=== PATIENT | male | born 1965 | race Caucasian/White ===

== ENCOUNTER 2018-04-20 02:19 | Inpatient (IN) | payer MEDICAID ==
[~2018-04-20] VITALS: Ht 190.5 cm; Wt 115.5 kg
[2018-04-20] VITALS (7 sets, daily range): BP systolic 118–180; BP diastolic 78–108
--- NOTE | ~2018-04-20 | EC ---
PATIENT:OWEN ARRIOLA DATE OF SERVICE: 04/20/18 SEX: M MEDICAL RECORD: [id number] DATE OF : 69 LOCATION:D.MS [address] AGE OF PATIENT: 52 ADMISSION DATE: 04/20/18 REFERRING PHYSICIAN: INTERPRETING PHYSICIAN: ADELE GUERRERO MD ECHOCARDIOGRAM REPORT ECHO CHARGES Date: CLINICAL DIAGNOSIS: ECHOCARDIOGRAPHIC MEASUREMENTS (adult normal given) AC root (d.<3.7cm) cm LV Septum d (<1.2 cm> cm Valve Excursion cm LV Septum (systole) cm Left Atria (s.<4.0cm> cm LVPW d(<1.2cm) cm RV (d.<2.3cm) cm LVPW (sytole) cm LV diastole(<5.6CM) cm MV E-F(>70mm/sec) cm LV systole cm LVOT Diameter cm MV exc.(>10mm) cm Est.ejection fraction (50-75%) % DOPPLER: LVIT cm/sec A cm/sec E cm/sec LA cm/sec RVSP mmHg LVOT cm/sec AOP1/2T m/s Asc. Ao cm/sec RVOT cm/sec RA cm/sec PA cm/sec AV Gradient Peak mmHg AV Mean mmHg AV Area cm MV Gradient Peak mmHg MV Mean mmHg MV Area cm COMMENTS: Flasher Adjuster: Head Still Operator: IVANIA# Pericardial Effusion DATE OF SERVICE: 04/20/2018 FINDINGS: 1. Left ventricular chamber size is mildly dilated. Left ventricular systolic function is preserved. Overall ejection fraction estimated at 55%. 2. Left atrium is within normal limits at 3.8 cm. Right atrium and right ventricular chamber sizes are mildly dilated. 3. Valvular structures have normal structure and motion. 4. Doppler interrogation reveals trace aortic insufficiency, trace mitral regurgitation, mild tricuspid regurgitation. No other valvular insufficiency or ECHOCARDIOGRAM REPORT [id number] OWEN ARRIOLA stenosis. Pulmonary systolic pressure is estimated at 31 mmHg. 5. No evidence of pericardial effusion or left ventricular thrombus. TRANSINT:[id number] Voice Confirmation ID: [id number] DOCUMENT ID: [id number] ADELE GUERRERO MD at 1749 CC: [id number] DICTATION DATE: 04/20/18 0294 RUBBING BED OPERATOR: 04/20/18 1705 ADM IN [facility] [address] [place] [address]
[2018-04-20 13:10] LABS: T4 THYROXIN - FREE 1.17 ng/dL (0.76-1.46); THYROID STIMULATING HORMONE 1.43 uIU/mL (0.36-3.74)
[2018-04-21] VITALS (9 sets, daily range): BP systolic 97–191; BP diastolic 57–108; Ht 190.5 cm; Wt 115.5 kg
[2018-04-21 06:24] LABS: BASOPHILS 0.2 % (0-2); EOSINOPHILS 1.1 % (0-7); HEMATOCRIT 26.8 % (42.0-54.0); HEMOGLOBIN 8.7 g/dL (13.5-17.5); IMMATURE GRANULOCYTES 0.2 % (0-5); LYMPHOCYTES 25.4 % (15-50); MCH 27.4 pg (26.0-34.0); MCHC 32.5 g/dL (31.0-37.0); MCV 84.3 fL (80.0-100.0); MEAN PLATELET VOLUME 9.4 fL (7.4-10.4); MONOCYTES 6.5 % (2-11); NEUTROPHILS 66.6 % (40-80); PLATELET COUNT 257 10x3/uL (130-400); RBC 3.18 10x6/uL (4.20-6.10); RDW 11.9 % (11.5-14.5); WBC 8.4 10x3/uL (4.8-10.8)
[2018-04-21 06:51] LABS: CALCIUM 8.1 mg/dL (8.5-10.1); CARBON DIOXIDE 25.5 mmol/L (21.0-32.0); CREATININE - SERUM 1.7 mg/dL (0.6-1.3); POTASSIUM - SERUM 4.5 mmol/L (3.5-5.1)
[2018-04-21 10:46] LABS: CREATININE - URINE 53.3 mg/dL (30-125); PROTEIN - URINE 130.7 mg/dL (0.0-11.9)
[2018-04-22 00:10] VITALS: BP 154/84
[2018-04-22 04:03] VITALS: BP 183/96
[2018-04-22 04:44] LABS: BASOPHILS 0.1 % (0-2); EOSINOPHILS 0.8 % (0-7); HEMATOCRIT 26.8 % (42.0-54.0); HEMOGLOBIN 8.6 g/dL (13.5-17.5); IMMATURE GRANULOCYTES 0.6 % (0-5); MCH 27.1 pg (26.0-34.0); MCHC 32.1 g/dL (31.0-37.0); MCV 84.5 fL (80.0-100.0); MONOCYTES 5.7 % (2-11); NEUTROPHILS 68.8 % (40-80); PLATELET COUNT 252 10x3/uL (130-400); RBC 3.17 10x6/uL (4.20-6.10)
[2018-04-22 04:57] LABS: ANION GAP 11.7 mmol/L (8-16); CALCIUM 8.5 mg/dL (8.5-10.1); CARBON DIOXIDE 25.5 mmol/L (21.0-32.0); CREATININE - SERUM 1.7 mg/dL (0.6-1.3); POTASSIUM - SERUM 4.2 mmol/L (3.5-5.1)
[2018-04-22 08:10] VITALS: BP 186/113
[2018-04-22 12:47] VITALS: BP 188/108
[2018-04-22 16:48] VITALS: BP 153/87
[2018-04-22 20:00] VITALS: BP 157/98
[2018-04-23] VITALS: BP 148/78
[2018-04-23 04:00] VITALS: BP 170/101
[2018-04-23 06:50] LABS: BASOPHILS 0.2 % (0-2); EOSINOPHILS 1.1 % (0-7); HEMATOCRIT 25.1 % (42.0-54.0); HEMOGLOBIN 8.1 g/dL (13.5-17.5); IMMATURE GRANULOCYTES 0.4 % (0-5); LYMPHOCYTES 22.8 % (15-50); MCH 27.5 pg (26.0-34.0); MCHC 32.3 g/dL (31.0-37.0); MCV 85.1 fL (80.0-100.0); MONOCYTES 7.1 % (2-11); NEUTROPHILS 68.4 % (40-80); PLATELET COUNT 267 10x3/uL (130-400); RBC 2.95 10x6/uL (4.20-6.10); RDW 12.1 % (11.5-14.5); WBC 9.1 10x3/uL (4.8-10.8)
[2018-04-23 07:04] LABS: ANION GAP 12.2 mmol/L (8-16); CALCIUM 8.5 mg/dL (8.5-10.1); CARBON DIOXIDE 25.5 mmol/L (21.0-32.0); CREATININE - SERUM 1.8 mg/dL (0.6-1.3); POTASSIUM - SERUM 3.7 mmol/L (3.5-5.1)
[2018-04-23 09:22] VITALS: BP 168/96
[2018-04-23 15:58] VITALS: BP 146/73
[2018-04-23 20:00] VITALS: BP 157/95
[2018-04-24] VITALS: BP 171/107
[2018-04-24 04:00] VITALS: BP 141/84
[2018-04-24 05:17] LABS: BASOPHILS 0.2 % (0-2); EOSINOPHILS 1.2 % (0-7); HEMATOCRIT 26.7 % (42.0-54.0); HEMOGLOBIN 8.5 g/dL (13.5-17.5); IMMATURE GRANULOCYTES 0.2 % (0-5); LYMPHOCYTES 22.8 % (15-50); MCH 27.2 pg (26.0-34.0); MCHC 31.8 g/dL (31.0-37.0); MCV 85.3 fL (80.0-100.0); MEAN PLATELET VOLUME 8.9 fL (7.4-10.4); MONOCYTES 7.3 % (2-11); NEUTROPHILS 68.3 % (40-80); PLATELET COUNT 297 10x3/uL (130-400); RBC 3.13 10x6/uL (4.20-6.10); RDW 12.1 % (11.5-14.5); WBC 8.6 10x3/uL (4.8-10.8)
[2018-04-24 05:23] LABS: ANION GAP 11.9 mmol/L (8-16); CALCIUM 8.3 mg/dL (8.5-10.1); CREATININE - SERUM 1.9 mg/dL (0.6-1.3); POTASSIUM - SERUM 3.9 mmol/L (3.5-5.1)
[2018-04-24 08:58] VITALS: BP 180/101
[2018-04-24 16:06] VITALS: BP 132/68
[2018-04-24 20:00] VITALS: BP 174/106
[2018-04-25] VITALS: BP 147/80
[2018-04-25 04:00] VITALS: BP 148/78
[2018-04-25 06:30] LABS: BASOPHILS 0.3 % (0-2); EOSINOPHILS 1.4 % (0-7); HEMOGLOBIN 8.6 g/dL (13.5-17.5); IMMATURE GRANULOCYTES 0.4 % (0-5); MCH 27.2 pg (26.0-34.0); MCHC 31.9 g/dL (31.0-37.0); MCV 85.4 fL (80.0-100.0); MEAN PLATELET VOLUME 8.6 fL (7.4-10.4); MONOCYTES 8.5 % (2-11); NEUTROPHILS 66.4 % (40-80); PLATELET COUNT 292 10x3/uL (130-400); RBC 3.16 10x6/uL (4.20-6.10); RDW 12.2 % (11.5-14.5); WBC 7.4 10x3/uL (4.8-10.8)
[2018-04-25 06:54] LABS: ANION GAP 10.3 mmol/L (8-16); CALCIUM 8.7 mg/dL (8.5-10.1); CARBON DIOXIDE 26.4 mmol/L (21.0-32.0); CREATININE - SERUM 1.7 mg/dL (0.6-1.3); POTASSIUM - SERUM 3.7 mmol/L (3.5-5.1)
[2018-04-25 08:31] VITALS: BP 191/107
[2018-04-25 12:45] VITALS: BP 185/105
[2018-04-25 17:56] VITALS: BP 113/75
[2018-04-25 22:54] VITALS: BP 169/95
[2018-04-26 01:26] VITALS: BP 120/80
[2018-04-26 09:20] VITALS: BP 198/109
[2018-04-26 12:03] VITALS: BP 195/119
[2018-04-26 13:48] VITALS: BP 182/108
[2018-04-26 15:39] VITALS: BP 174/102
[2018-04-26 20:51] VITALS: BP 176/99
[2018-04-27 05:28] VITALS: BP 192/106
[2018-04-27 09:32] VITALS: BP 197/106
[2018-04-27] MEDS ORDERED: COREG12.5 MG PO (11:11)
[2018-04-27] MEDS ORDERED: NORVASC10 MG PO (11:11)
[2018-04-27] MEDS ORDERED: LISINOPRIL10 MG PO (11:11)
[2018-04-27] MEDS ORDERED: CATAPRES0.1 MG PO (11:11)
[2018-04-27] MEDS ORDERED: HYDRALAZINE HCL50 MG PO (11:11)
[2018-04-27] MEDS ORDERED: FLORAJEN3 CAPS460 MG PO (11:11)
[2018-04-27] MEDS ORDERED: LANTUS INSULIN10 ML SC (11:12)
[2018-04-27] MEDS ORDERED: CIPRO500 MG PO (11:13)
[2018-04-27] MEDS ORDERED: ZYVOX600 MG PO (11:13)
[2018-04-27] MEDS ORDERED: HUMULIN R100 U/ML SC (11:13)
[2018-04-27 12:11] VITALS: BP 163/98
== END 2018-04-27 15:17 | disposition home health service (06) | DRG 617 ==
LOC: D.ER 02:19 → D.EDHOLD 04:11 → D.MS 04:11
PROVIDERS: Internal Medicine Nephrology; Podiatrist Foot & Ankle Surgery
PROC: 0Y6P0Z3 Detachment at Right 1st Toe, Low, Open Approach (ICD-10-PCS; principal; 2018-04-23 07:30)
PROC: 0Y6M0Z9 Detachment at Right Foot, Partial 1st Ray, Open Approach (ICD-10-PCS; 2018-04-27)
PROC: 0HBMXZZ Excision of Right Foot Skin, External Approach (ICD-10-PCS; 2018-04-27)
PROC: 0HQMXZZ Repair Right Foot Skin, External Approach (ICD-10-PCS; 2018-04-27)
DX: E11.628 Type 2 diabetes mellitus with other skin complications (principal); I96 Gangrene, not elsewhere classified; E11.52 Type 2 diabetes mellitus with diabetic peripheral angiopathy with gangrene; I12.9 Hypertensive chronic kidney disease with stage 1 through stage 4 chronic kidney disease, or unspecified chronic kidney disease; L03.031 Cellulitis of right toe; E11.65 Type 2 diabetes mellitus with hyperglycemia; E11.22 Type 2 diabetes mellitus with diabetic chronic kidney disease; E11.621 Type 2 diabetes mellitus with foot ulcer; N18.3 Chronic kidney disease, stage 3 (moderate); Z91.19 Patient's noncompliance with other medical treatment and regimen; I10 Essential (primary) hypertension

== ENCOUNTER 2018-05-04 13:08 | Emergency (ER) | payer MEDICAID ==
[~2018-05-04] VITALS: Ht 190.5 cm; Wt 106.4 kg
[~2018-05-04 13:08] MED LIST: CATAPRES0.1 MG PO; CIPRO500 MG PO; COREG12.5 MG PO; FLORAJEN3 CAPS460 MG PO; HUMULIN R100 U/ML SC; HYDRALAZINE HCL50 MG PO; LANTUS INSULIN10 ML SC; LISINOPRIL10 MG PO; NORVASC10 MG PO; ZYVOX600 MG PO
[2018-05-04 13:41] VITALS: Ht 190.5 cm; Wt 106.4 kg
[2018-05-04 14:55] LABS: BASOPHILS 0.3 % (0-2); EOSINOPHILS 0.5 % (0-7); HEMATOCRIT 32.5 % (42.0-54.0); HEMOGLOBIN 10.6 g/dL (13.5-17.5); IMMATURE GRANULOCYTES 0.3 % (0-5); LYMPHOCYTES 17.8 % (15-50); MCH 27.5 pg (26.0-34.0); MCHC 32.6 g/dL (31.0-37.0); MCV 84.2 fL (80.0-100.0); MEAN PLATELET VOLUME 8.3 fL (7.4-10.4); MONOCYTES 6.2 % (2-11); NEUTROPHILS 74.9 % (40-80); RBC 3.86 10x6/uL (4.20-6.10); RDW 12.7 % (11.5-14.5)
[2018-05-04 14:56] LABS: PLATELET COUNT 392 10x3/uL (130-400)
[2018-05-04 15:25] LABS: ALBUMIN 2.5 g/dL (3.4-5.0); ANION GAP 9.6 mmol/L (8-16); BILIRUBIN - TOTAL 0.29 mg/dL (0.2-1.3); CALCIUM 8.5 mg/dL (8.5-10.1); CARBON DIOXIDE 27.3 mmol/L (21.0-32.0); CREATININE - SERUM 2.9 mg/dL (0.6-1.3); POTASSIUM - SERUM 3.9 mmol/L (3.5-5.1); PROTEIN - SERUM 6.7 g/dL (6.4-8.2)
[2018-05-04] MEDS ORDERED: ZOFRAN8 MG PO (20:33)
[2018-05-04 21:12] VITALS: BP 165/100
== END 2018-05-04 21:27 | disposition home or self-care (01) ==
LOC: D.ER 13:08
PROVIDERS: Family Medicine
DX: K52.9 Noninfective gastroenteritis and colitis, unspecified (principal); E11.9 Type 2 diabetes mellitus without complications; R11.2 Nausea with vomiting, unspecified; K59.00 Constipation, unspecified

== ENCOUNTER 2018-07-31 06:54 | Outpatient (CLI) | payer MEDICAID ==
[~2018-07-31] VITALS: Ht 190.5 cm; Wt 106.8 kg
--- NOTE | ~2018-07-31 | HP ---
PATIENT: OWEN ARRIOLA MEDICAL RECORD: [id number] ACCOUNT: [id number] LOCATION:VIDYA : 69 ADMISSION DATE: 07/31/18 PCP: IVANA NICHOLS MD HISTORY AND PHYSICAL EXAMINATION DATE OF SERVICE: 07/31/2018 DIAGNOSES: 1. Chest pain compatible with angina. 2. Shortness of breath. 3. Hypertension. 4. Abnormal nuclear stress test. HISTORY OF PRESENT ILLNESS: Mr. Arriola has past history of hypertension, but no history of ischemic heart disease. He has been having chest pain and shortness of breath. He underwent risk stratification with stress testing and Cardiolite imaging, now brought for cardiac catheterization as this was abnormal. PHYSICAL EXAMINATION: GENERAL APPEARANCE: Well-nourished, well-developed, appears stated age. Level of distress, comfortable. PSYCHIATRIC: Mental status, alert, normal affect. Orientation, oriented to time, place and person. EYES: Lids and conjunctiva, noninjected. No discharge, no pallor. ENT: Lips, teeth, gums, normal dentition. Oropharynx, no cyanosis, no pallor. NECK: Carotid arteries, bilateral normal upstroke, no bruits, no thrills. JUGULAR VEINS: No jugular venous pressure or distention. CERVICAL LYMPH NODES: Nontender, nonenlarged. THYROID: Not enlarged. Nontender. No nodules. LUNGS: Respiratory effort, unlabored. CHEST: Normal curvature. No thoracic deformity. No chest wall tenderness. Percussion, resonant. Auscultation, clear. No wheezes, no rales, no rhonchi. CARDIOVASCULAR: Precordial exam, nondisplaced. No heaves or pericardial thrills. Rate and rhythm, regular. Heart sounds, normal S1, normal S2. No S3, no gallop, no rub. Systolic murmur, not heard. Diastolic murmur, not heard. EXTREMITIES: No cyanosis, no edema. Peripheral pulses, full and equal in all extremities, except as noted. No bruits appreciated. ABDOMEN: Soft, nondistended. Normal aorta. No bruit. Nontender. No masses. Liver, nontender, no hepatomegaly. Spleen, nontender, no splenomegaly. MUSCULOSKELETAL: No joint tenderness. No joint swelling. No erythema. NEUROLOGICAL: Normal gait, normal strength, normal tone. SKIN: Warm and dry. OVERALL IMPRESSION: Chest pain, shortness of breath, abnormal nuclear stress test. We will proceed with coronary angiography. Further care depends on the findings of the angiography. TRANSINT:[id number] Voice Confirmation ID: [id number] DOCUMENT ID: [id number] HISTORY AND PHYSICAL [id number] OWEN ARRIOLA JEFFREY MD at 0924 CC: [id number] DICTATION DATE: 07/31/18 1428 SEAT COVER CUTTER: 07/31/18 1436 DEP CLI 07/31/18 [id number] [place] [address]
--- NOTE | ~2018-07-31 | OP ---
PATIENT NAME: OWEN ARRIOLA MEDICAL RECORD: [id number] :69 LOCATION:D.CAT ADMISSION DATE: SURGEON: ADELE GUERRERO MD DATE OF OPERATION: 07/31/2018 PROCEDURES: 1. Left heart catheterization. 2. Selective coronary angiography. 3. Left ventriculogram. INDICATION: Chest pain compatible with angina and abnormal nuclear stress test. PROCEDURE IN DETAIL: After informed consent was obtained and after a detailed description of the risks, benefits as well as alternative therapies, the patient elected to proceed with angiogram and heart catheterization. The right radial area was prepped and draped in normal sterile fashion. Right radial artery was cannulated via modified Seldinger technique with placement of 5-Tunisian sheath. All catheters exchanged through this sheath. FINDINGS: Left ventriculogram was performed in standard 30-degree NASH view, reveals good cardiac wall motion throughout all segments. Overall ejection fraction estimated at 60%. SELECTIVE CORONARY ANGIOGRAPHY: Left main, left anterior descending, left circumflex, right coronary artery are smooth-walled vessels with no angiographic evidence of coronary artery disease. OVERALL IMPRESSION: 1. No angiographic evidence of coronary artery disease. 2. Normal left heart pressures. 3. Normal left ventricular systolic function. Chest pain is not cardiac in etiology. No further cardiac workup needs to be ascertained. TRANSINT:[id number] Voice Confirmation ID: [id number] DOCUMENT ID: [id number] ADELE GUERRERO MD at 0924 CC: [id number] DICTATION DATE: 07/31/18 1427 VICE PRESIDENT PAYER: 07/31/18 1439 DEP CLI 07/31/18 [place] [address]
--- NOTE | ~2018-07-31 | HEMODYNAMI ---
PATIENT:OWEN ARRIOLA MEDICAL RECORD: [id number] : 69 LOCATION:VIDYA ADMISSION DATE: 07/31/18 Generatedon:07/31/201814:29 Patient name: OWEN ARRIOLA Patient #: [id number] SSN: : 1965 Date of study: 07/31/2018 Page: Of Hemodynamic Procedure Report Patient Data Patient Demographics Procedure consent was obtained First Name: OWEN Gender: Male Last Name: FLAKO : 1965 Patient #: [id number] Age: 52 year(s) Race: Unknown Additional ID: [id number] Contact details [address]: [address] [place] [address] State: [place] City: [place] Zip code: [address] Admission Admission Data Admission Date: 07/31/2018 Admission Time: 6:54 Procedure Procedure Types Cath Procedure Diagnostic Procedure LHC LHC w/Coronaries Procedure Description Procedure Date Procedure Date: 07/31/2018 Procedure Start Time: 14:17 Procedure End Time: 14:25 Procedure Staff Name Function Yony Moore MD Performing Physician Mana Rehman RT Monitor Jerome Moser RN Nurse Paola Ruelas RT Scrub Procedure Data Cath Procedure Fluoroscopy Diagnostic fluoroscopy Total fluoroscopy Time: 1.5 time: 1.5 min min Diagnostic fluoroscopy Total fluoroscopy dose: 488 dose: 488 mGy mGy Contrast Material Contrast Material Type Amount (ml) Isovue 300 47 Entry Location Entry Primary Successful Side Size Upsize Upsize Entry Closure Jeter ccessful Closure Location (Fr) 1 (Fr) 2 (Fr) Remarks Device Remarks Radial Right 6 Fr Mechanical artery Short Compression Estimated blood loss: 5 ml Diagnostic catheters Device Type Used For End Catheter Placement DIAGNOSTIC [place] 110cm 5 Multi-vessel Fr catheter ([id number]) Angiography Procedure Complications No complications Procedure Medications Medication Administration Route Dosage Oxygen etCO2 Nasal cannula 2 l/min Heparin Flush Bag added to field 2 bags (1000units/500ml NS) 0.9% NaCl I.V. 100 ml/hr Radial Cocktail added to field 1 syringe (Verapomil 2mg/Nitro 400mcg/Heparin 1500units) Fentanyl I.V. 50 mcg Versed I.V. 1 mg Radial Cocktail I.A. 1 syringe (Verapomil 2mg/Nitro 400mcg/Heparin 1500units) Fentanyl I.V. 50 mcg Versed I.V. 1 mg Hemodynamics Rest Heart Rate: 77 (bpm) Pressure Samples Time Site Value (mmHg) Purpose Heart Use Rate(bpm) 14:19 AO 134/61(94) Snapshot 49 Snapshots Pre Cath Intra NCS Post Cath Vital Signs Time Heart Resp SPO2 etCO2 NIBP (mmHg) Rhythm Pain Sedation Rate (ipm) (%) (mmHg) Status Level (bpm) 13:54:22 80 17 0 168/96(140) NSR 0 (11) 10(A) , No pain 13:58:42 73 17 0 165/92(135) NSR 0 (11) 10(A) , No pain 14:03:00 69 17 0 164/96(134) NSR 0 (11) 10(A) , No pain 14:07:21 76 17 100 32.2 161/88(141) NSR 0 (11) 10(A) , No pain 14:11:39 69 17 99 28.5 150/91(121) NSR 0 (11) 10(A) , No pain 14:15:54 74 16 99 36 150/88(113) NSR 0 (11) 9(A) , No pain 14:20:10 75 17 98 32.2 114/81(104) NSR 0 (11) 9(A) , No pain 14:24:14 73 17 97 32.2 123/84(103) NSR 0 (11) 9(A) , No pain Medications Time Medication Route Dose Verified Delivered Reason Notes Effectiveness by by 14:03:12 Oxygen etCO2 2 l/min Yony Cano Per Nasal Oscar Moser RN physician cannula 14:05:31 Heparin Flush added 2 bags Yony Cano used for Bag to Oscar Moser hydrologist (1000units/500ml field NS) 14:05:38 0.9% NaCl I.V. 100 Yony Cano Per ml/hr Oscar Moser RN physician 14:05:45 Radial Cocktail added 1 Yony Cano used for (Verapomil to syringe Oscar Moser RN procedure 2mg/Nitro field 400mcg/Heparin 1500units) 14:12:57 Fentanyl I.V. 50 mcg Yony Cano for sedation Oscar Moser RN 14:13:04 Versed I.V. 1 mg Yony Cano for sedation Oscar Moser RN 14:19:58 Radial Cocktail I.A. 1 Yony Bhakta for (Verapomil syringe Oscar Moore MD vasodilation 2mg/Nitro 400mcg/Heparin 1500units) 14:20:05 Fentanyl I.V. 50 mcg Yony Cano for sedation Oscar Moser RN 14:20:09 Versed I.V. 1 mg Yony Cano for sedation Oscar Moser RN Procedure Log Time Note 13:30:38 Jerome Moser RN sent for patient. Start room use. 13:35:39 Time tracking: Regular hours (M-F 7:00 - 5:00) 13:35:44 Plan of Care:Hemodynamics will remain stable., Cardiac rhythm will remain stable., Comfort level will be maintained., Respiratory function will remain adequate., Patient/ family verbilizes understanding of procedure., Procedure tolerated without complication., Recovers from procedure without complications.. 13:41:54 Patient received from Pre/Post Procedure Room to CCL 2 Alert and oriented. Tansferred to table in Supine position. 13:41:56 Warm blankets applied, and juana hugger turned on for patient comfort. 13:41:57 Correct patient and procedure confirmed by team. 13:41:59 Signed procedure consent form obtained from patient. 13:45:02 ECG and BP/O2 sat monitors applied to patient. 13:53:13 Vital chart was started 13:53:15 Baseline sample Acquired. 13:53:26 Rhythm: sinus rhythm 13:53:28 Full Disclosure recording started 13:53:34 H&P Date Dictated: 07/31/2018 Within 30 days and on chart., H&P Addendum completed by physician on day of procedure. (MUST COMPLETE FOR ALL OUTPATIENTS). 13:53:35 Pre-procedure instructions explained to patient. 13:53:36 Pre-op teaching completed and patient verbalized understanding. 13:53:37 Family in waiting room. 13:53:39 Patient NPO since Midnight. 13:53:40 Is the patient allergic to Iodine/contrast media? No. 13:53:41 Was the patient premedicated? No 13:54:39 Is patient on blood thinner?No 13:54:41 Patient diabetic? No. 13:54:45 Previous problem with sedation/anesthesia? No ? 13:54:47 Snore? Yes 13:54:48 Sleep apnea? No 13:54:48 Deviated septum? No 13:54:49 Opens mouth fully? Yes 13:54:50 Sticks out tongue? Yes 13:54:51 Airway obstruction? No ? 13:54:54 Dentures? No ? 13:54:57 Pre procedure: right dorsailis pedis pulse 2+ Normal; easily identifiable; not easily obliterated 13:55:00 Pre procedure: left dorsailis pedis pulse 2+ Normal; easily identifiable; not easily obliterated 13:55:03 Patient pain scale 0/10 ?. 14:03:12 Oxygen 2 l/min etCO2 Nasal cannula was administered by Jerome Moser RN; Per physician; 14:05:31 Heparin Flush Bag (1000units/500ml NS) 2 bags added to field was administered by Jerome Moser RN; used for procedure; 14:05:38 0.9% NaCl 100 ml/hr I.V. was administered by Jerome Moser RN; Per physician; 14:05:44 IV started by Jerome Moser RN inright hand with a 20 gauge IV catheter with 0.9% NaCl at KVO. 14:05:45 Radial Cocktail (Verapomil 2mg/Nitro 400mcg/Heparin 1500units) 1 syringe added to field was administered by Jerome Moser RN; used for procedure; 14:05:47 Lab results completed and on chart. 14:05:51 Right Radial & Right Groin area was prepped with chlora-prep and draped in sterile fashion 14:05:52 Alarms reviewed by Jasmin Rowan. 14::53 Sharps counted by scrub and verified by Autumn. 14:09:52 Physician arrived 14::53 --------ALL STOP TIME OUT------ 14::53 Final Timeout: patient, procedure, and site verified with staff and physician. All members of the team are in agreement. 14:09:55 Right Radial & Right Groin site verified by team. 14:09:58 Physical assessment completed. ASA score P 2 - A patient with mild systemic disease as per Yony Moore MD. 14:10:01 Sedation plan: IV Moderate Sedation Medication:Versed, Fentanyl 14:10:06 Use device set Radial Dx or PCI 14:10:07 ACIST Syringe (24216) opened to sterile field. 14:10:07 Medline Cath Pack ([id number]) opened to sterile field. 14:10:07 Bag Decanter (2002S) opened to sterile field. 14:10:08 DIAGNOSTIC WIRE .035 260cm J wire (629054) opened to sterile field. 14:10:08 ACIST Hand Control (44662) opened to sterile field. 14:10:09 ACIST Manifold (49702) opened to sterile field. 14:10:09 Tegaderm 4 x 4 (1626W) opened to sterile field. 14:10:10 MBrace Wrist Support ([id number]) opened to sterile field. 14:10:11 SHEATH 6Fr Prelude Radial ([id number]) opened to sterile field. 14:10:21 IV CATHETER 20g opened to sterile field. 14:10:22 IV CATHETER 20g opened to sterile field. 14:12:18 Zero performed for pressure channel P1 14:12:57 Fentanyl 50 mcg I.V. was administered by Jerome Moser RN; for sedation; 14:13:04 Versed 1 mg I.V. was administered by Jerome Moser RN; for sedation; 14:17:07 Procedure started. 14:17:14 Local anesthetic to right radial artery with Lidocaine 2% by Yony Moore MD.INITIAL ACCESS ONLY 14:17:31 A 6 Fr Short sheath was inserted into the Right Radial artery 14:18:15 A DIAGNOSTIC [place] 110cm 5 Fr catheter ([id number]) was advanced over the wire and used for Multi-vessel Angiography. 14:19:55 LV hemodynamics recorded. 14:19:58 Radial Cocktail (Verapomil 2mg/Nitro 400mcg/Heparin 1500units) 1 syringe I.A. was administered by Yony Moore MD; for vasodilation; 14:20:05 Fentanyl 50 mcg I.V. was administered by Jerome Moser RN; for sedation; 14:20:06 EF : 60 % 14:20:07 LV gram done using NASH 14:20:09 Versed 1 mg I.V. was administered by Jerome Moser RN; for sedation; 14:20:10 Injector settings: Ml/sec: 5, Volume: 15\, 14:20:32 RCA angiography performed. 14:20:35 Injector settings: Ml/sec: 3, Volume: 6, 14:20:43 Catheter removed. 14:21:17 GUIDE 6FR XBLAD 3.5 catheter ([id number]) opened to sterile field. 14:21:48 6 Fr xblad 3.5 guide catheter was inserted over the wire 14:22:25 LCA angiography performed. 14:22:27 Injector settings: Ml/sec: 3, Volume: 6, 14:23:23 TR BAND Standard ([id number]) opened to sterile field. 14:23:38 Sheath removed intact; hemostasis achieved with Mechanical Compression to the Right Radial artery. 14:23:40 Procedure ended.(Physican Out) 14:24:13 Fluoroscopy time 01.50 minutes. 14:24:18 Fluoroscopy dose: 488 mGy 14:24:18 Flurop Dose total: 488 14:24:29 Contrast amount:Isovue 300 47ml. 14:24:31 Sharps counted by scrub and verified by R.N. 14:24:35 TR band inflated with 10cc of air. 14:24:36 Insertion/operative site no bleeding no hematoma. 14:24:42 Post right radial artery:stable 14:24:43 Post Procedure Pulses reassessed and unchanged 14:24:46 Post procedure rhythm: unchanged. 14:24:58 Estimated blood loss: 5 ml 14:25:01 Post procedure instruction explained to patient.Patient verbalizes understanding. 14:25:01 Patient needs reinforcement of post procedure teaching. 14:25:26 Procedure type changed to Cath procedure, Diagnostic procedure, LHC, LHC w/Coronaries 14:25:26 Procedure and supply charges have been captured, reviewed, submitted and are correct. 14:25:31 Procedure Complication : No complications 14:25:33 Vital chart was stopped 14:25:34 See physician's report for complete and final results. 14:25:38 Report given to [facility] II. 14:25:41 Patient transfered to [facility] with Stretcher. 14:25:43 Procedure ended. 14:25:43 Full Disclosure recording stopped 14:25:49 End room use (Document Last) Device Usage Item Name Manufacture Quantity Catalog Number Hospital Part Current M inimal Lot# / Charge Number Stock Stock Serial# Code ACIST Syringe Acist 1 [id number] [id number] 158837 496853 2 0 (08835) [employer] Inc Medline Cath Cardinal 1 [id number] 17317 879785 5 Pack Health ([id number]) Bag Decanter Microtek 1 2001S 465624 08089 025944 5 (2001S) Medical Inc. DIAGNOSTIC WIRE [address] [place] 1 434408 523060 425672 524118 3 0 .035 260cm J wire (550716) ACIST Hand Acist 1 23376 864238 411351 745214 5 Control (11766) [employer] Systems Inc ACIST Manifold Acist 1 75422 914824 066586 445338 5 (49262) Medical Systems Inc Tegaderm 4 x 4 3M 1 1626W 175288 936596 248144 5 (1626W) MBrace Wrist Advanced 1 140-0250-00 628358 55716 287459 5 Support Vascular ([id number]) Dynamics SHEATH 6Fr Merit 1 [id number] 256967 277027 942222 5 Prelude Radial Medical ([id number]) IV CATHETER 20g B. Milian 2 [id number] 433190 213618 799857 5 DIAGNOSTIC Terumo 1 40-2117 593856 361504 727365 5 [place] 110cm 5 Fr catheter (266798) GUIDE 6FR XBLAD Cardinal 1 [id number] 663266 919838 276006 1 0 3.5 catheter Health (18622899) TR BAND Terumo 1 [id number] 381938 521872 883121 4 0 Standard ([id number]) Signature Audit [place] Stage Time Signature Unsigned Intra-Procedure 07/31/2018 Mana Rehman 2:29:20 PM RT(R) Signatures Monitor : Mana Rehman RT Signature : Date : Time : [facility] [address] [place] [address]
[~2018-07-31 06:54] MED LIST changes: +ZOFRAN8 MG PO
[2018-07-31] MEDS ORDERED: LISINOPRIL10 MG PO (07:22)
[2018-07-31] MEDS ORDERED: CHLORTHALIDONE25 MG PO (07:23)
[2018-07-31 07:48] VITALS: BP 134/82; Ht 190.5 cm; Wt 106.8 kg
[2018-07-31 07:54] LABS: BASOPHILS 0.1 % (0-2); EOSINOPHILS 1.2 % (0-7); HEMATOCRIT 24.4 % (42.0-54.0); IMMATURE GRANULOCYTES 0.1 % (0-5); LYMPHOCYTES 26.7 % (15-50); MCH 27.6 pg (26.0-34.0); MCHC 32.8 g/dL (31.0-37.0); MCV 84.1 fL (80.0-100.0); MEAN PLATELET VOLUME 8.5 fL (7.4-10.4); MONOCYTES 6.2 % (2-11); NEUTROPHILS 65.7 % (40-80); WBC 6.8 10x3/uL (4.8-10.8)
[2018-07-31 08:03] LABS: PLATELET COUNT 219 10x3/uL (130-400)
[2018-07-31 08:04] LABS: ANION GAP 14.1 mmol/L (8-16); CARBON DIOXIDE 21.4 mmol/L (21.0-32.0); POTASSIUM - SERUM 4.5 mmol/L (3.5-5.1)
== END 2018-07-31 16:40 ==
LOC: D.CATH 06:54
PROVIDERS: Internal Medicine Interventional Cardiology
DX: R07.9 Chest pain, unspecified (principal); R94.39 Abnormal result of other cardiovascular function study; R06.00 Dyspnea, unspecified; I10 Essential (primary) hypertension

== ENCOUNTER → 2020-01-04 19:10 | Outpatient (CLI) | payer BC ==
[2018-07-31 07:48] VITALS: BMI 29.4
[~2020-01-04 19:10] MED LIST changes: +BASAGLAR K100 UNIT/1 SC; +CHLORTHALIDONE25 MG PO; +FUROSEMIDE20 MG PO; +GLUCOSAMINE HC500 MG; +LISINOPRIL20 MG PO; +PEPCID40 MG PO; +PRAVACHOL20 MG PO; +TRADJENTA5 MG PO
== END | disposition home or self-care (01) ==
LOC: D.LABREF 19:10
PROVIDERS: ATTEND Podiatrist Foot & Ankle Surgery
DX: L03.115 Cellulitis of right lower limb (principal)

== ENCOUNTER 2020-01-05 16:15 | Inpatient (IN) | payer BC ==
[~2020-01-05] VITALS: Ht 190.5 cm; Wt 112.9 kg
[~2020-01-05 16:15] MED LIST changes: -BASAGLAR K100 UNIT/1 SC; -FUROSEMIDE20 MG PO; -GLUCOSAMINE HC500 MG; -LISINOPRIL20 MG PO; -PEPCID40 MG PO; -PRAVACHOL20 MG PO; -TRADJENTA5 MG PO
[2020-01-05] MEDS ORDERED: NORVASC10 MG PO (17:08)
[2020-01-05] MEDS ORDERED: COREG12.5 MG PO (17:08)
[2020-01-05] MEDS ORDERED: FUROSEMIDE20 MG PO (17:09)
[2020-01-05] MEDS ORDERED: LISINOPRIL20 MG PO (17:09)
[2020-01-05] MEDS ORDERED: PEPCID40 MG PO (17:09)
[2020-01-05] MEDS ORDERED: TRADJENTA5 MG PO (17:10)
[2020-01-05] MEDS ORDERED: PRAVACHOL20 MG PO (17:10)
[2020-01-05] MEDS ORDERED: GLUCOSAMINE HC500 MG PO (17:11)
[2020-01-05] MEDS ORDERED: BASAGLAR K100 UNIT/1 SC (17:11)
[2020-01-05 17:19] VITALS: BP 190/96; BMI 31.1
[2020-01-05 17:41] LABS: BASOPHILS 0.1 % (0-2); EOSINOPHILS 0.2 % (0-7); HEMATOCRIT 24.5 % (42.0-54.0); HEMOGLOBIN 7.8 g/dL (13.5-17.5); IMMATURE GRANULOCYTES 0.3 % (0-5); LYMPHOCYTES 6.7 % (15-50); MCH 27.9 pg (26.0-34.0); MCHC 31.8 g/dL (31.0-37.0); MCV 87.5 fL (80.0-100.0); MEAN PLATELET VOLUME 8.8 fL (7.4-10.4); MONOCYTES 7.6 % (2-11); NEUTROPHILS 85.1 % (40-80); PLATELET COUNT 258 10x3/uL (130-400); WBC 19.9 10x3/uL (4.8-10.8)
[2020-01-05 18:00] LABS: ALBUMIN 2.7 g/dL (3.4-5.0); ANION GAP 15.3 mmol/L (8-16); BILIRUBIN - TOTAL 0.31 mg/dL (0.2-1.3); CALCIUM 8.7 mg/dL (8.5-10.1); CARBON DIOXIDE 22.6 mmol/L (21.0-32.0); CREATININE - SERUM 3.2 mg/dL (0.6-1.3); POTASSIUM - SERUM 4.9 mmol/L (3.5-5.1); PROTEIN - SERUM 7.4 g/dL (6.4-8.2)
[2020-01-05 20:00] VITALS: BP 163/86
[2020-01-06 04:00] VITALS: BP 159/83
--- NOTE | 2020-01-06 04:22 | NUR ---
I have reviewed this patient and I concur with the Shift Assessment completed by the Licensed Practical Nurse today this shift.
[2020-01-06 04:51] LABS: BASOPHILS 0.1 % (0-2); EOSINOPHILS 0.3 % (0-7); HEMATOCRIT 21.4 % (42.0-54.0); IMMATURE GRANULOCYTES 0.3 % (0-5); LYMPHOCYTES 11.6 % (15-50); MCH 27.2 pg (26.0-34.0); MCHC 31.3 g/dL (31.0-37.0); MEAN PLATELET VOLUME 8.7 fL (7.4-10.4); MONOCYTES 9.4 % (2-11); NEUTROPHILS 78.3 % (40-80); PLATELET COUNT 257 10x3/uL (130-400); RBC 2.46 10x6/uL (4.20-6.10); RDW 13.1 % (11.5-14.5); WBC 15.9 10x3/uL (4.8-10.8)
[2020-01-06 04:59] LABS: APTT 38.7 SECONDS (22.8-39.4); INR 1.07 (0.85-1.17); PROTIME 13.8 SECONDS (11.6-15.0)
[2020-01-06 05:11] LABS: HEMOGLOBIN 6.7 g/dL (13.5-17.5)
[2020-01-06 05:28] LABS: ANION GAP 14.7 mmol/L (8-16); CALCIUM 8.7 mg/dL (8.5-10.1); CARBON DIOXIDE 22.1 mmol/L (21.0-32.0); CREATININE - SERUM 3.4 mg/dL (0.6-1.3); MAGNESIUM - SERUM 1.7 mg/dL (1.8-2.4); PHOSPHOROUS 3.7 mg/dL (2.5-4.9); POTASSIUM - SERUM 4.8 mmol/L (3.5-5.1); VANCOMYCIN - RANDOM 10.8 ug/mL (10.0-20.0)
--- NOTE | 2020-01-06 08:00 | NUR ---
ASSESSMENT PER FLOW SHEET. PT IS WITHOUT DISTRESS.NPO FOR POSSIBLE PROCEDURE TODAY.UNIT 1 OF 2 PRBC'S INFUSING AND PATIENT REMAINS WITHOUT REACTIONS.
[2020-01-06 09:06] VITALS: BP 143/75
[2020-01-06 11:22] VITALS: BP 153/89
--- NOTE | 2020-01-06 11:30 | NUR ---
BACK TO ROOM FROM PACU. VSS. DRESSING RIGHT FOOT CDI. WITHOUT SIGNS OF DISTRESS
[2020-01-06 13:03] VITALS: Ht 190.5 cm; Wt 112.9 kg
[2020-01-06 14:51] LABS: BASOPHILS 0.1 % (0-2); EOSINOPHILS 0.3 % (0-7); HEMATOCRIT 24.6 % (42.0-54.0); HEMOGLOBIN 7.7 g/dL (13.5-17.5); IMMATURE GRANULOCYTES 0.3 % (0-5); LYMPHOCYTES 9.7 % (15-50); MCH 27.3 pg (26.0-34.0); MCHC 31.3 g/dL (31.0-37.0); MCV 87.2 fL (80.0-100.0); MEAN PLATELET VOLUME 8.7 fL (7.4-10.4); MONOCYTES 6.3 % (2-11); NEUTROPHILS 83.3 % (40-80); PLATELET COUNT 246 10x3/uL (130-400); RBC 2.82 10x6/uL (4.20-6.10); RDW 13.3 % (11.5-14.5); WBC 15.6 10x3/uL (4.8-10.8)
[2020-01-06 16:16] VITALS: BP 151/84
[2020-01-06 16:32] LABS: ERYTHROCYTE SEDIMENTATION RATE 132 mm/hr (0-20)
[2020-01-06 17:46] LABS: CREATININE - URINE 133.1 mg/dL (30-125); PRO/CRE RATIO URINE 2.1 mg/g; PROTEIN - URINE 285.4 mg/dL (0.0-11.9)
[2020-01-06 17:54] LABS: BILIRUBIN NEGATIVE (NEGATIVE); GLUCOSE 50 mg/dL (NEGATIVE); KETONE NEGATIVE (NEGATIVE); NITRITE NEGATIVE (NEGATIVE); UROBILINOGEN NORMAL (NORMAL)
[2020-01-06 18:22] LABS: AMORPHOUS SEDIMENT <1+ /lpf (NONE SEEN); BACTERIA MODERATE /hpf (NEGATIVE); EPITHELIAL CELLS NSEEN /hpf (0-5); RED CELLS - URINE 0-5 /hpf (0-5); WHITE CELLS - URINE 0-5 /hpf (NEGATIVE)
[2020-01-06 20:00] VITALS: BP 126/73
[2020-01-07] VITALS (10 sets, daily range): BP systolic 059–193; BP diastolic 73–105
--- NOTE | 2020-01-07 04:21 | NUR ---
I have reviewed this patient and I concur with the Shift Assessment completed by the Licensed Practical Nurse today this shift.
--- NOTE | 2020-01-07 05:16 | NUR ---
I have reviewed this patient and I concur with the Shift Assessment completed by the Licensed Practical Nurse today this shift.
[2020-01-07 05:59] LABS: HEMOGLOBIN 7.6 g/dL (13.5-17.5); MCH 27.7 pg (26.0-34.0); MCHC 31.7 g/dL (31.0-37.0); MCV 87.6 fL (80.0-100.0); MEAN PLATELET VOLUME 8.8 fL (7.4-10.4); PLATELET COUNT 254 10x3/uL (130-400); RBC 2.74 10x6/uL (4.20-6.10); RDW 13.8 % (11.5-14.5); WBC 15.1 10x3/uL (4.8-10.8)
[2020-01-07 06:34] LABS: % SATURATION 31 % (15-55); IRON 36 ug/dl (35-150); TOTAL IRON BIND CAPACITY 113 ug/dl (260-445); UNSAT IRON BIND CAPACITY 77 ug/dl (150-375)
[2020-01-07 07:13] LABS: ANION GAP 19.2 mmol/L (8-16); CALCIUM 8.3 mg/dL (8.5-10.1); CARBON DIOXIDE 19.7 mmol/L (21.0-32.0); CREATININE - SERUM 3.8 mg/dL (0.6-1.3); MAGNESIUM - SERUM 1.7 mg/dL (1.8-2.4); PHOSPHOROUS 3.3 mg/dL (2.5-4.9); POTASSIUM - SERUM 4.9 mmol/L (3.5-5.1); VANCOMYCIN - RANDOM 12.6 ug/mL (10.0-20.0)
--- NOTE | 2020-01-07 08:35 | NUR ---
0730 PATIENT SITING UP IN BED. A&OX 4. RESPIRATIONS EVEN AND UNLABORED. DENIES ANY COMPLAINTS OR NEEDS AT THIS TIME. WILL CONTINUE TO MONITOR.
[2020-01-07 09:16] LABS: LYMPHOCYTES 9 % (15-50); MONOCYTES 10 % (2-11); NEUTROPHILS 81 % (40-80); PLATELET ESTIMATE NORMAL; ROULEAUX OCC
--- NOTE | 2020-01-07 22:00 | NUR ---
ANTIBIOTIC INFUSION COMPLETE. BEGAN TRANSFUSION OF PRBC'S. ONE UNIT TO BE INFUSED. VITALS SIGNS TAKEN. BP RUNNING HIGH. GAVE CLONIDINE 0.1 MG PO. PT C/O INDIGESTION. CALLED DIGNA BLUNT. RECEIVED ORDER FOR PROTONIX 40 MG DAILY AND GIVE ONE DOSE NOW. NO OTHER NEEDS. NO TRANSFUSION REACTION, INCREASED RATE OF INFUSION. WILL CONTINUE TO MONITOR.
[2020-01-07] MEDS ORDERED: CATAPRES0.2 MG PO (22:10)
[2020-01-08] VITALS: BP 154/73
--- NOTE | 2020-01-08 | NUR ---
PRBC INFUSION COMPLETE. VITALS SIGNS STABLE. NO TRANSFUSION REACTION NOTED. WILL CONTINUE TO MONITOR.
[2020-01-08 04:00] VITALS: BP 157/80
[2020-01-08 07:42] LABS: BASOPHILS 0.1 % (0-2); EOSINOPHILS 0.4 % (0-7); HEMATOCRIT 27.3 % (42.0-54.0); HEMOGLOBIN 8.7 g/dL (13.5-17.5); IMMATURE GRANULOCYTES 0.5 % (0-5); LYMPHOCYTES 7.7 % (15-50); MCH 28.1 pg (26.0-34.0); MCHC 31.9 g/dL (31.0-37.0); MCV 88.1 fL (80.0-100.0); MEAN PLATELET VOLUME 8.8 fL (7.4-10.4); MONOCYTES 8.8 % (2-11); NEUTROPHILS 82.5 % (40-80); PLATELET COUNT 290 10x3/uL (130-400); RDW 14.3 % (11.5-14.5); WBC 13.7 10x3/uL (4.8-10.8)
[2020-01-08 07:46] VITALS: BP 175/98
[2020-01-08 07:54] LABS: CALCIUM 8.6 mg/dL (8.5-10.1); CARBON DIOXIDE 18.5 mmol/L (21.0-32.0); CREATININE - SERUM 3.4 mg/dL (0.6-1.3); MAGNESIUM - SERUM 1.8 mg/dL (1.8-2.4); PHOSPHOROUS 3.1 mg/dL (2.5-4.9); POTASSIUM - SERUM 4.5 mmol/L (3.5-5.1); VANCOMYCIN - RANDOM 16.3 ug/mL (10.0-20.0)
--- NOTE | 2020-01-08 08:07 | NUR ---
PATIENT LYING IN BED SLEEPING. PATIENT COMPLAINS OF ACID REFLUX. WAS GIVEN PROTONIX THIS AM. PT STATES THIS A CHRONIC PROBLEM. OFFERED TO GIVE ZOFRAN FOR NAUSEA. PATIENT REFUSED AT THIS TIME. DENIES ANY NEEDS OR COMPLAINTS. WILL CONTINUE TO MONITOR.
--- NOTE | 2020-01-08 09:50 | NUR ---
IV LEAKING LEFT WRIST/HAND. REMOVED. RESTARTED TO LEFT HAND 22 GAUGE WNL. NO COMPLAINTS. WILL CONTINUE TO MONITOR.
[2020-01-08 11:43] VITALS: BP 172/95
--- NOTE | 2020-01-08 11:46 | NUR ---
PATIENT SITTING UP IN BED. FEELING NAUSEATED. VOMITED 50 ML'S OF DARK BROWN LIQUID. GAVE ZOFRAN PER ORDER. HYPERTENSION GIVEN PRN HYDRALAZINE. WILL CONTINUE TO MONITOR.
--- NOTE | 2020-01-08 13:13 | NUR ---
GAVE HANDOFF REPORT TO SATYA MOSQUERA RN
[2020-01-08 17:17] VITALS: BP 183/99
[2020-01-08 20:33] VITALS: BP 176/91
[2020-01-09 01:20] VITALS: BP 156/83
[2020-01-09 05:15] VITALS: BP 165/87
[2020-01-09 06:18] LABS: BASOPHILS 0.2 % (0-2); EOSINOPHILS 0.9 % (0-7); HEMATOCRIT 25.5 % (42.0-54.0); HEMOGLOBIN 8.2 g/dL (13.5-17.5); IMMATURE GRANULOCYTES 0.8 % (0-5); LYMPHOCYTES 12.4 % (15-50); MCH 28.6 pg (26.0-34.0); MCHC 32.2 g/dL (31.0-37.0); MCV 88.9 fL (80.0-100.0); MEAN PLATELET VOLUME 8.7 fL (7.4-10.4); NEUTROPHILS 76.7 % (40-80); PLATELET COUNT 263 10x3/uL (130-400); RBC 2.87 10x6/uL (4.20-6.10); RDW 14.4 % (11.5-14.5); WBC 11.6 10x3/uL (4.8-10.8)
[2020-01-09 06:34] LABS: ANION GAP 16.9 mmol/L (8-16); CALCIUM 8.6 mg/dL (8.5-10.1); CARBON DIOXIDE 20.6 mmol/L (21.0-32.0); MAGNESIUM - SERUM 1.9 mg/dL (1.8-2.4); POTASSIUM - SERUM 4.5 mmol/L (3.5-5.1); VANCOMYCIN - RANDOM 8.8 ug/mL (10.0-20.0)
--- NOTE | 2020-01-09 07:10 | NUR ---
PT RESTING IN BED. NO SIGNS OF DISTRESS. IV TO LEFT HAND PATENT NO REDNESS OR TENDERNESS. DRESSING TO RIGHT FOOT CLEAN AND INTACT. INCISION TO RIGHT FOOT. DENIES ANY FURTHER NEED AT THIS TIME. CALL LIGHT IN REACH. BED LOW POSITION. FAMILY AT BEDSIDE AT THIS TIME.
[2020-01-09 09:22] VITALS: BP 177/88
--- NOTE | 2020-01-09 13:26 | NUR ---
I have reviewed this patient and I concur with the Shift Assessment completed by the Licensed Practical Nurse today this shift.
[2020-01-09 13:57] VITALS: BP 188/100
[2020-01-09 16:42] VITALS: BP 174/89
--- NOTE | 2020-01-09 19:30 | MORECARE ---
CASE MANAGEMENT DISCHARGE SUMMARY PATIENT: OWEN ARRIOLA UNIT: [id number] ADM DATE: 01/05/20 AGE: 54 : [birth year] SEX: M ROOM/BED: D.2224 AUTHOR: DARNELL TURK PHYSICIAN: REFERRING PHYSICIAN: EYAL OROZCO MD DATE OF SERVICE: 01/09/20 Discharge Plan Patient Name: OWEN ARRIOLA [facility] [facility] 1965 Planned Disposition: Home Anticipated Discharge Date: Discharge Date: Expected LOS: Initial Reviewer: [email or web address] Initial Review Date: 01/05/2020 Generated: 01/09/20 8:29 pm Patient Name: OWEN ARRIOLA Page 10107 at 1930 All edits/amendments must be made on the electronic document DICTATION DATE: 01/09/201928 CREATIVE SERVICES DESIGNER: SUZY 01/09/201928 RPT#: [id number] DC DATE: STATUS: ADM IN [facility] [address] [place] [address] END OF REPORT
--- NOTE | 2020-01-09 19:37 | MORECARE ---
CASE MANAGEMENT DISCHARGE SUMMARY PATIENT: OWEN ARRIOLA UNIT: [id number] ADM DATE: 01/05/20 AGE: 54 : [birth year] SEX: M ROOM/BED: D.2224 AUTHOR: ROSALEE,DOC PHYSICIAN: REFERRING PHYSICIAN: EYAL OROZCO MD DATE OF SERVICE: 01/09/20 Discharge Plan Patient Name: OWEN ARRIOLA Facility: [facility]:[place] : 1965 Planned Disposition: Home Anticipated Discharge Date: Discharge Date: Expected LOS: Initial Reviewer: [email or web address] Initial Review Date: 01/05/2020 Generated: 01/09/20 8:36 pm Comments DCP- Discharge Planning Updated by [email or web address]: Aurelia Gonzalez on 01/09/20 6:[address] Patient Name: OWEN ARRIOLA Admission Status: Elective Accout number: [id number] Admission Date: 01-05-2020 : 1965 Admission Diagnosis:SEPSIS, UNSPECIFIED ORGANISM Attending: EYAL OROZCO Current LOS: 4 Anticipated DC Date: Planned Disposition: Home Primary Insurance: [email or web address] O Discharge Planning Comments: CM MET WITH PATIENT AND EXPLAINED CM ROLE AFTER OBTAINING VERBAL CONSENT. PATIENT STATES HE LIVES AT HOME WITH HIS SPOUSE INDEPENDENTLY AND PLANS TO RETURN UPON DISCHARGE. CM EXPLAINED HOME HEALTH, REHAB AND MEDICAL EQUIPMENT. PATIENT STATED THAT HE DID NOT THINK HE WOULD NEED ANY HOME HEALTH SERVICES UPON DISCHARGE. CM ASKED ABOUT DRESSING CHANGES AND HE SAID THE DOCTOR WOULD BE DOING IT. PATIENT DENIES ANY DISCHARGE NEEDS AT THIS TIME . CM WILL CONTINUE TO FOLLOW AND ASSIST NEEDED WITH DISCHARGE PLANNING / NEEDS. Wrapping Clerk: Aurelia Gonzalez DCPIA - Discharge Planning Initial Assessment Updated by [email or web address]: Aurelia Gonzalez on 01/09/20 7:30 pm * Is the patient Alert and Oriented? Yes * How many steps to enter\exit or inside your home? 6-7 * PCP [place] * Pharmacy [facility] * Preadmission Environment Home with Family * ADLs Independent * Equipment None * List name and contact numbers for known caregivers / representatives who currently or will assist patient after discharge: LUCY ARRIOLA - SPOUSE - [phone] * Verbal permission to speak to the caregivers and representatives has been obtained from the patient. Yes * Community resources currently utilized None * Additional services required to return to the preadmission environment? No * Can the patient safely return to the preadmission environment? Yes * Has this patient been hospitalized within the prior 30 days at any hospital? No Last DP export: 01/09/20 6:30 p Patient Name: OWEN ARRIOLA Page 23004 at 1937 All edits/amendments must be made on the electronic document DICTATION DATE: 01/09/201935 SPECTRAL SCIENTIST: SUZY 01/09/201935 RPT#: [id number] DC DATE: STATUS: ADM IN [facility] [address] [place] [address] END OF REPORT
[2020-01-09 20:00] VITALS: BP 186/87
--- NOTE | 2020-01-09 23:53 | NUR ---
TEMP 100.9 AND C/O CHEST HURTS WHEN HE COUGHS. LUNG SOUNDS ARE CLEAR. GAVE TYLENOL 650 PO AND ENCOURAGED PT TO USE INCENTIVE SPIROMETER. NO OTHER NEEDS. WILL CONTINUE TO MONITOR.
[2020-01-10] VITALS (8 sets, daily range): BP systolic 143–183; BP diastolic 83–99
[2020-01-10 04:32] LABS: BASOPHILS 0.2 % (0-2); EOSINOPHILS 1.3 % (0-7); HEMATOCRIT 24.6 % (42.0-54.0); HEMOGLOBIN 7.6 g/dL (13.5-17.5); IMMATURE GRANULOCYTES 1.3 % (0-5); LYMPHOCYTES 16.3 % (15-50); MCH 27.6 pg (26.0-34.0); MCHC 30.9 g/dL (31.0-37.0); MCV 89.5 fL (80.0-100.0); MEAN PLATELET VOLUME 8.6 fL (7.4-10.4); MONOCYTES 8.1 % (2-11); NEUTROPHILS 72.8 % (40-80); PLATELET COUNT 276 10x3/uL (130-400); RBC 2.75 10x6/uL (4.20-6.10); RDW 14.6 % (11.5-14.5); WBC 10.3 10x3/uL (4.8-10.8)
[2020-01-10 05:02] LABS: ANION GAP 15.3 mmol/L (8-16); CALCIUM 8.1 mg/dL (8.5-10.1); CARBON DIOXIDE 18.9 mmol/L (21.0-32.0); CREATININE - SERUM 2.9 mg/dL (0.6-1.3); MAGNESIUM - SERUM 1.8 mg/dL (1.8-2.4); PHOSPHOROUS 3.1 mg/dL (2.5-4.9); POTASSIUM - SERUM 4.2 mmol/L (3.5-5.1); VANCOMYCIN - RANDOM 11.4 ug/mL (10.0-20.0)
--- NOTE | 2020-01-10 07:59 | NUR ---
HE IS SLEEPING, DENIES ANY PAIN OR NEEDS. RIGHT FOOT ELEVATED ON PILLOWS.
--- NOTE | 2020-01-10 13:35 | NUR ---
Nutrition follow-up: Diet: consistent CHO PO intake 50-100% of most meals Labs reviewed Wt: 248# RDN following.
[2020-01-10] MEDS ORDERED: LEVAQUIN750 MG PO (13:39)
[2020-01-10] MEDS ORDERED: CLEOCIN HCL300 MG PO (13:39)
--- NOTE | 2020-01-10 14:14 | MORECARE ---
CASE MANAGEMENT DISCHARGE SUMMARY PATIENT: OWEN ARRIOLA UNIT: [id number] ADM DATE: 01/05/20 AGE: 54 : 69 SEX: M ROOM/BED: D.2224 AUTHOR: ROSALEEDOC PHYSICIAN: REFERRING PHYSICIAN: EYAL OROZCO MD DATE OF SERVICE: 01/10/20 Discharge Plan Patient Name: OWEN ARRIOLA Facility: [facility]:[place] : 1965 Planned Disposition: Home Anticipated Discharge Date: Discharge Date: Expected LOS: Initial Reviewer: [email or web address] Initial Review Date: 01/05/2020 Generated: 01/10/20 3:14 pm Comments DCP- Discharge Planning Updated by [email or web address]: Mary Valdez on 01/10/20 1:[address] Patient Name: OWEN ARRIOLA Encounter No: [id number] : 1965 Primary Insurance: [employer] [facility] [place]ticip[place] DC Date: Planned Disposition: Home External Planned Provider: : DCP follow-up note: Patient and family in agreement with discharge plan. No changes to plan. States his is going to do his dressing changes. States Dr. Kevin showed her how to flush the wound with the betadine solution and place the dry dressing. States he will see Dr. Kevin next week. Case management will follow and assist as needed. Mary José Miguel DCP- Discharge Planning Updated by [id number]: Aurelia Gonzalez on 01/09/20 6:[address] Patient Name: OWEN ARRIOLA Admission Status: Elective Accout number: [id number] Admission Date: 01-05-2020 : 1965 Admission Diagnosis:SEPSIS, UNSPECIFIED ORGANISM Attending: EYAL OROZCO Current LOS: 4 Anticipated DC Date: Planned Disposition: Home Primary Insurance: [employer] [facility] [place] Discharge Planning Comments: CM MET WITH PATIENT AND EXPLAINED CM ROLE AFTER OBTAINING VERBAL CONSENT. PATIENT STATES HE LIVES AT HOME WITH HIS SPOUSE INDEPENDENTLY AND PLANS TO RETURN UPON DISCHARGE. CM EXPLAINED HOME HEALTH, REHAB AND MEDICAL EQUIPMENT. PATIENT STATED THAT HE DID NOT THINK HE WOULD NEED ANY HOME HEALTH SERVICES UPON DISCHARGE. CM ASKED ABOUT DRESSING CHANGES AND HE SAID THE DOCTOR WOULD BE DOING IT. PATIENT DENIES ANY DISCHARGE NEEDS AT THIS TIME . CM WILL CONTINUE TO FOLLOW AND ASSIST NEEDED WITH DISCHARGE PLANNING / NEEDS. Manager Beverage: Aurelia Gonzalez DCPIA - Discharge Planning Initial Assessment Updated by [email or web address]: Aurelia Gonzalez on 01/09/20 7:30 pm * Is the patient Alert and Oriented? Yes * How many steps to enter\exit or inside your home? 6-7 * PCP [place] * Pharmacy [facility] * Preadmission Environment Home with Family * ADLs Independent * Equipment None * List name and contact numbers for known caregivers / representatives who currently or will assist patient after discharge: LUCY ARRIOLA - SPOUSE - [phone] * Verbal permission to speak to the caregivers and representatives has been obtained from the patient. Yes * Community resources currently utilized None * Additional services required to return to the preadmission environment? No * Can the patient safely return to the preadmission environment? Yes * Has this patient been hospitalized within the prior 30 days at any hospital? No Last DP export: 01/09/20 6:37 p Patient Name: OWEN ARRIOLA Page [id number] at 1414 All edits/amendments must be made on the electronic document DICTATION DATE: 01/10/201413 DRYING RACK CHANGER: SUZY 01/10/201413 RPT#: [id number] DC DATE: STATUS: ADM IN [facility] [address] [place] [address] END OF REPORT
--- NOTE | 2020-01-10 15:15 | NUR ---
STARTED THE FIRST UNIT OF BLOOD.
--- NOTE | 2020-01-10 18:25 | NUR ---
THE FIRST UNIT OF BLOOD HAS INFUSED. VS TAKEN, PATIENT IS STABLE.
--- NOTE | 2020-01-10 18:32 | NUR ---
THE SECOND UNIT OF BLOOD STARTED.
--- NOTE | 2020-01-10 19:00 | NUR ---
PATIENT SITING UP IN BED. NO ACTUE DISTRESS NOTED AT THIS TIME. 1 UNIT OF PRBC GOING @125 TO R FA , IRON ALSO INFUSING TO L HAND. PATIENT STATES HE WOULD LIKE AN ICE WATER, BUT HAS NO FURTHER NEEDS AT THIS TIME. BED IN LOW POSITION, RAILS X2. CALL LIGHT AND BEDSIDE TABLE WITHIN REACH.
--- NOTE | 2020-01-10 22:49 | NUR ---
D/C'S IV IN R HAND AND L FA, TIPS BOTH INTACT. TOOK PATIENT TO CAR VIA WHEELCHAIR.
--- NOTE | 2020-01-11 07:51 | MORECARE ---
CASE MANAGEMENT DISCHARGE SUMMARY PATIENT: OWEN ARRIOLA UNIT: [id number] ADM DATE: 01/05/20 AGE: 54 : 69 SEX: M ROOM/BED: D.2224 AUTHOR: DARNELL TURK PHYSICIAN: REFERRING PHYSICIAN: EYAL OROZCO MD DATE OF SERVICE: 01/11/20 Discharge Plan Patient Name: OWEN ARRIOLA Facility: [facility]:[place] : 1965 Planned Disposition: Home Anticipated Discharge Date: Discharge Date: 01/10/2020 Expected LOS: 0 Initial Reviewer: [email or web address] Initial Review Date: 01/05/2020 Generated: 01/11/20 8:51 am Comments DCP- Discharge Planning Updated by [email or web address]: Mary Valdez on 01/10/20 1:[address] Patient Name: OWEN ARRIOLA Encounter No: [id number] : 1965 [place] [employer] [facility] [place] Date: Planned Disposition: Home External Planned Provider: : DCP follow-up note: Patient and family in agreement with discharge plan. No changes to plan. States his is going to do his dressing changes. States Dr. Kevin showed her how to flush the wound with the betadine solution and place the dry dressing. States he will see Dr. Kevin next week. Case management will follow and assist as needed. Mary Valdez DCP- Discharge Planning Updated by [email or web address]: Aurelia Gonzalez on 01/09/20 6:[address] Patient Name: OWEN ARRIOLA Admission Status: Elective Accout number: [id number] Admission Date: 01-05-2020 : 1965 Admission Diagnosis:SEPSIS, UNSPECIFIED ORGANISM Attending: EYAL OROZCO Current LOS: 4 Anticipated DC Date: Planned Disposition: Home [place] [employer] [facility] [place] Planning Comments: CM MET WITH PATIENT AND EXPLAINED CM ROLE AFTER OBTAINING VERBAL CONSENT. PATIENT STATES HE LIVES AT HOME WITH HIS SPOUSE INDEPENDENTLY AND PLANS TO RETURN UPON DISCHARGE. CM EXPLAINED HOME HEALTH, REHAB AND MEDICAL EQUIPMENT. PATIENT STATED THAT HE DID NOT THINK HE WOULD NEED ANY HOME HEALTH SERVICES UPON DISCHARGE. CM ASKED ABOUT DRESSING CHANGES AND HE SAID THE DOCTOR WOULD BE DOING IT. PATIENT DENIES ANY DISCHARGE NEEDS AT THIS TIME . CM WILL CONTINUE TO FOLLOW AND ASSIST NEEDED WITH DISCHARGE PLANNING / NEEDS. University Teacher: Aurelia Gonzalez DCPIA - Discharge Planning Initial Assessment Updated by [id number]: Aurelia Gonzalez on 01/09/20 7:30 pm * Is the patient Alert and Oriented? Yes * How many steps to enter\exit or inside your home? 6-7 * PCP [place] * Pharmacy [facility] * Preadmission Environment Home with Family * ADLs Independent * Equipment None * List name and contact numbers for known caregivers / representatives who currently or will assist patient after discharge: LUCY ARRIOLA - [facility] - [phone] * Verbal permission to speak to the caregivers and representatives has been obtained from the patient. Yes * Community resources currently utilized None * Additional services required to return to the preadmission environment? No * Can the patient safely return to the preadmission environment? Yes * Has this patient been hospitalized within the prior 30 days at any hospital? No Last DP export: 01/10/20 1:14 p Patient Name: OWEN ARRIOLA Page [id number] at 0751 All edits/amendments must be made on the electronic document DICTATION DATE: 01/11/20750 FLAVORER: SUZY 01/11/20750 RPT#: [id number] DC DATE:01/10/20 STATUS: DIS IN [facility] [address] [place] [address] END OF REPORT
== END 2020-01-10 22:50 | disposition home or self-care (01) | DRG 853 ==
LOC: D.MS 16:15
PROVIDERS: Family Medicine; Internal Medicine Nephrology; Podiatrist Foot & Ankle Surgery; ADMIT Emergency Medicine; ATTEND Emergency Medicine
PROC: 0S9M0ZZ Drainage of Right Metatarsal-Phalangeal Joint, Open Approach (ICD-10-PCS; principal; 2020-01-06 08:30)
DX: A41.9 Sepsis, unspecified organism (principal); J18.9 Pneumonia, unspecified organism; L03.115 Cellulitis of right lower limb; L02.415 Cutaneous abscess of right lower limb; N17.9 Acute kidney failure, unspecified; E11.621 Type 2 diabetes mellitus with foot ulcer; L97.529 Non-pressure chronic ulcer of other part of left foot with unspecified severity; E11.65 Type 2 diabetes mellitus with hyperglycemia; E11.40 Type 2 diabetes mellitus with diabetic neuropathy, unspecified; K21.9 Gastro-esophageal reflux disease without esophagitis; E11.22 Type 2 diabetes mellitus with diabetic chronic kidney disease; I12.9 Hypertensive chronic kidney disease with stage 1 through stage 4 chronic kidney disease, or unspecified chronic kidney disease; N18.9 Chronic kidney disease, unspecified; D63.1 Anemia in chronic kidney disease; D50.9 Iron deficiency anemia, unspecified; Z91.14 Patient's other noncompliance with medication regimen; E86.0 Dehydration